=== PATIENT | male | born 1970 | race Caucasian/White ===

== ENCOUNTER → 2020-12-13 | Outpatient (CLI) | payer OTHER | END | disposition home or self-care (01) | LOC: STAR 10:51 | PROVIDERS: ATTEND Anesthesiology | DX: Z20.822 Contact with and (suspected) exposure to COVID-19 (principal) | CPT/HCPCS: 87635 ==

== ENCOUNTER 2020-12-26 11:44 | Day surgery (SDC) | payer OTHER ==
[2020-12-24 16:05] LABS: BASOPHILS % (AUTO) 1 % (0-1); EOSINOPHILS % (AUTO) 1 % (1-7); LYMPHOCYTES % (AUTO) 17 % (22-44); MEAN CORPUSCULAR HEMOGLOBIN 29.3 pg (27.5-34.5); MEAN CORPUSCULAR HGB CONC 33.2 g/dL (33.2-36.2); MEAN PLATELET VOLUME 7.5 fL (7.4-10.4); MONOCYTES % (AUTO) 8 % (2-9); NEUTROPHILS % (AUTO) 73 % (42-75); PLATELET COUNT 246 x10^3/uL (130-400); RED BLOOD COUNT 4.31 x10^6/uL (4.38-5.82); RED CELL DISTRIBUTION WIDTH 15.8 % (9.4-14.8)
[2020-12-24 16:07] LABS: MD NO
[2020-12-24 16:16] LABS: ALANINE AMINOTRANSFERASE 23 U/L (12-78); ALBUMIN 3.8 g/dL (3.4-5.0); ANION GAP 8 mmol/L (5-15); CALCIUM 9.2 mg/dL (8.5-10.1); CHLORIDE 93 mmol/L (98-107); CREATININE 6.26 mg/dL (0.7-1.3)
[2020-12-24 16:18] LABS: ALKALINE PHOSPHATASE 74 U/L (45-117); BILIRUBIN,TOTAL 0.3 mg/dL (0.2-1.0); INTERNATIONAL NORMALIZED RATIO 0.95 (0.93-1.1); PROTHROMBIN TIME 10.2 Seconds (9.6-11.5); TOTAL PROTEIN 7.6 g/dL (6.4-8.2)
[~2020-12-26] VITALS: Ht 157.5 cm; Wt 63.9 kg
[~2020-12-26 11:44] MED LIST: CALC667T4 PO; CARV12.52 PO; FURO-92 PO
[2020-12-26 11:59] VITALS: BP 120/87
[2020-12-26] MEDS ORDERED: CHLORHEXIDINE 15 ML UDC ONE (12:13)
[2020-12-26] MEDS ORDERED: SODIUM CHLORIDE 0.9% 1,000 ML IV SCH (12:30)
[2020-12-26] MEDS ORDERED: CHLORHEXIDINE 15 ML UDC MM ONE (12:30)
[2020-12-26] MEDS ORDERED: MIDAZOLAM 1 MG/ML, 2ML ONE (14:33)
[2020-12-26] MEDS ORDERED: PROPOFOL 50 ML ONE (14:33)
[2020-12-26] MEDS ORDERED: FENTANYL PF 250 MCG/5ML ONE (14:34)
[2020-12-26] MEDS ORDERED: PAPAVERINE 30 MG/ML, 2ML ONE (14:39)
[2020-12-26] MEDS ORDERED: HEPARIN 1,000 UNITS/ML, 10ML ONE (14:39)
[2020-12-26] MEDS ORDERED: THROMBIN 5,000 UNIT VIAL TP ONE (14:39)
[2020-12-26] MEDS ORDERED: BUPIVACAINE/PF 0.25% ONE (14:39)
[2020-12-26] MEDS ORDERED: CEFAZOLIN 1,000 MG ONE (14:45)
[2020-12-26] MEDS ORDERED: ONDANSETRON 2MG/ML, 2ML ONE (14:45)
[2020-12-26] MEDS ORDERED: DIAZEPAM 5 MG/ML, 2ML IVPush PRN (15:30)
[2020-12-26] MEDS ORDERED: DIPHENHYDRAMINE 50 MG/ML, 1ML IVPush PRN (15:30)
[2020-12-26] MEDS ORDERED: LABETALOL 5MG/ML, 20ML IV PRN (15:30)
[2020-12-26] MEDS ORDERED: EPHEDRINE 50 MG/ML, 1ML IM PRN (15:30)
[2020-12-26] MEDS ORDERED: ACETAMINOPHEN 325 MG TABLET PO PRN (15:30)
[2020-12-26] MEDS ORDERED: PROMETHAZINE 25 MG/ML, 1ML IVPush PRN (15:30)
[2020-12-26] MEDS ORDERED: ONDANSETRON 2MG/ML, 2ML IVPush PRN (15:30)
[2020-12-26] MEDS ORDERED: morphine SULFATE 10 MG/ML, 1ML IVPush PRN (15:30)
[2020-12-26] MEDS ORDERED: OXYcodone 5 MG/5 ML ORAL.SOL UDC PO PRN (15:30)
== END 2020-12-26 17:50 | disposition home or self-care (01) ==
LOC: OR 11:44
PROVIDERS: ATTEND Surgery
DX: I12.0 Hypertensive chronic kidney disease with stage 5 chronic kidney disease or end stage renal disease (principal); N18.6 End stage renal disease; Z20.822 Contact with and (suspected) exposure to COVID-19; Z79.899 Other long term (current) drug therapy; Z87.891 Personal history of nicotine dependence; Z82.49 Family history of ischemic heart disease and other diseases of the circulatory system
CPT/HCPCS: 36415; 36821; 80053; 85025; 85610; 85730; 93005; J0690; J1644; J2250; J2405; J2704; J3010; J7030; U0003; J2440